=== PATIENT | female | born 1935 | race Hispanic/Latino ===

== ENCOUNTER 2021-12-09 21:32 | Observation (INO) | payer OTHER ==
[~2021-12-09] VITALS: Ht 165.1 cm; Wt 74.4 kg
[2021-12-09 22:15] LABS: BASOPHILS % (AUTO) 0.3 % (0.0-5.0); HEMATOCRIT 43.4 % (36-48); LYMPHOCYTES % (AUTO) 4.3 % (21.0-51.0); MEAN CORPUSCULAR HEMOGLOBIN 33.3 pg (27.0-33.0); MEAN CORPUSCULAR HGB CONC 33.4 g/dL (32.0-36.0); MEAN CORPUSCULAR VOLUME 99.5 fL (79-99); MONOCYTES % (AUTO) 4.1 % (3.0-13.0); PLATELET COUNT (AUTO) 122 K/uL (130-400); RED BLOOD CELL COUNT(AUTO) 4.36 MIL/uL (4.00-5.50); RED CELL DISTRIBUTION WIDTH 16.3 % (11.0-15.5); WHITE BLOOD COUNT (AUTO) 14.7 K/uL (4.8-10.8)
[2021-12-09 22:23] LABS: CREATININE 1.2 mg/dL (0.5-1.5); POTASSIUM 4.1 mmol/L (3.5-5.1)
[2021-12-09 22:28] LABS: ALBUMIN 3.6 g/dL (3.5-5.0); TOTAL PROTEIN, SERUM 8.3 g/dL (6.0-8.3)
[2021-12-09] MEDS ORDERED: 0.9%NACL 1000ML 1,000 ML IV ONE (23:00)
[2021-12-09 23:01] LABS: APPEARANCE,URINE TURBID (CLEAR); BILIRUBIN,URINE NEGATIVE (NEGATIVE); COLOR,URINE LIGHT-ORANGE (YELLOW); GLUCOSE, URINE (UA) NEGATIVE (NEGATIVE); KETONES,URINE NEGATIVE (NEGATIVE); LEUKOCYTE ESTERASE ,URINE 500 Leu/uL (NEGATIVE); NITRATE,URINE 2+ (NEGATIVE); OCCULT BLOOD,URINE LARGE (NEGATIVE); PH,URINE 5.5 (5.0-8.0); PROTEIN,URINE 70 mg/dL (NEGATIVE); UROBILINOGEN,URINE 0.2 mg/dL (0.2-1.0)
[2021-12-09 23:13] LABS: BACTERIA,URINE MANY /HPF (None Seen); MUCUS,URINE RARE LPF (None Seen); RBC,URINE TNTC /HPF (0-1); RENAL EPITHELIAL CELLS,URINE FEW /HPF (None Seen); SQUAMOUS EPITHELIAL CELL,UR RARE /HPF (0-2); WBC,URINE TNTC /HPF (0-1); YEAST,URINE BUDDING FEW /HPF (None Seen)
[2021-12-09] MEDS ORDERED: CEFTRIAXONE 1G VIAL IVP ONE (23:30)
[2021-12-10] MEDS ORDERED: FOLI1 PO (01:00)
[2021-12-10] MEDS ORDERED: CARB1TAB41 PO (01:00)
[2021-12-10] MEDS ORDERED: LEVO25CA4 PO (01:00)
[2021-12-10] MEDS ORDERED: MELA1TAB17 PO (01:00)
[2021-12-10] MEDS ORDERED: DONE10TA43 PO (01:00)
[2021-12-10] MEDS ORDERED: MIDO5TAB4 PO ×2 (01:00)
[2021-12-10] MEDS ORDERED: METF-444 PO (01:00)
[2021-12-10] MEDS: DEXTROSE 5 %-0.45 % NACL 1,000 ML IV SCH ×2 (01:03→09:00)
[2021-12-10] MEDS: LEVOTHYROXINE 25 MCG TABLET PO SCH (07:38)
[2021-12-10 08:35] LABS: HEMATOCRIT 36.3 % (36-48); MEAN CORPUSCULAR HEMOGLOBIN 33.9 pg (27.0-33.0); MEAN CORPUSCULAR HGB CONC 33.9 g/dL (32.0-36.0); PLATELET COUNT (AUTO) 100 K/uL (130-400); RED BLOOD CELL COUNT(AUTO) 3.63 MIL/uL (4.00-5.50); RED CELL DISTRIBUTION WIDTH 16.4 % (11.0-15.5)
[2021-12-10] MEDS: CARBIDOPA LEVO PO SCH ×2 (09:00→20:26)
[2021-12-10 09:03] LABS: ALBUMIN 2.8 g/dL (3.5-5.0); POTASSIUM 3.9 mmol/L (3.5-5.1); TOTAL PROTEIN, SERUM 6.7 g/dL (6.0-8.3)
[2021-12-10 09:30] VITALS: BP 104/48
[2021-12-10] MEDS: METFORMIN HCL 500 MG TABLET PO SCH (10:32)
[2021-12-10] MEDS: FOLIC ACID 1 MG TABLET PO SCH (10:32)
[2021-12-10] MEDS: MIDODRINE HCL 5 MG TABLET PO SCH ×3 (10:32→16:28)
[2021-12-10 11:19] LABS: BASOPHILS % (MANUAL) 1 % (0-2); LYMPHOCYTES % (MANUAL) 9 % (22-44); MAN.DIFF COMMENT-IMPRESSION MANUAL DIFFERENTIAL; MONOCYTES % (MANUAL) 9 % (2-9); PLATELET MORPHOLOGY COMMENT SLIGHTLY DECREASED; SEGMENTED NEUTROPHILS % 81 % (40-70)
[2021-12-10 12:00] VITALS: BP 109/52
[2021-12-10 16:00] VITALS: BP 109/50
[2021-12-10 19:00] VITALS: BP 116/47
[2021-12-10] MEDS ORDERED: DONEPEZIL HCL 5 MG TAB PO SCH (21:00)
[2021-12-10] MEDS ORDERED: **HM**MELATONIN 5MG PO SCH (21:00)
[2021-12-10] MEDS ORDERED: CEFTRIAXONE 1G VIAL IVP SCH (23:00)
[2021-12-10 23:56] VITALS: BP 117/61
[2021-12-11] MEDS: DEXTROSE 5 %-0.45 % NACL 1,000 ML IV SCH (03:07)
[2021-12-11 04:00] VITALS: BP 126/64
[2021-12-11 05:07] LABS: BASOPHILS % (AUTO) 0.4 % (0.0-5.0); EOSINOPHILS % (AUTO) 5.9 % (0.0-8.0); HEMATOCRIT 34.5 % (36-48); LYMPHOCYTES % (AUTO) 23.8 % (21.0-51.0); MEAN CORPUSCULAR HEMOGLOBIN 33.8 pg (27.0-33.0); MEAN CORPUSCULAR HGB CONC 33.3 g/dL (32.0-36.0); MEAN CORPUSCULAR VOLUME 101.5 fL (79-99); NEUTROPHILS % (AUTO) 57.8 % (40.0-77.0); PLATELET COUNT (AUTO) 99 K/uL (130-400); RED CELL DISTRIBUTION WIDTH 16.6 % (11.0-15.5); WHITE BLOOD COUNT (AUTO) 7.9 K/uL (4.8-10.8)
[2021-12-11 05:18] LABS: ALBUMIN 2.6 g/dL (3.5-5.0); CREATININE 0.9 mg/dL (0.5-1.5); POTASSIUM 3.6 mmol/L (3.5-5.1); TOTAL PROTEIN, SERUM 6.3 g/dL (6.0-8.3)
[2021-12-11] MEDS: LEVOTHYROXINE 25 MCG TABLET PO SCH (06:05)
[2021-12-11] MEDS: METFORMIN HCL 500 MG TABLET PO SCH (09:37)
[2021-12-11] MEDS: MIDODRINE HCL 5 MG TABLET PO SCH (09:37)
[2021-12-11] MEDS: FOLIC ACID 1 MG TABLET PO SCH (09:37)
[2021-12-11] MEDS: CARBIDOPA LEVO PO SCH (09:38)
[2021-12-11 10:24] VITALS: BP 124/62
[2022-01-03] MEDS ORDERED: MELA1TAB17 PO (09:30)
[2022-01-03] MEDS ORDERED: ASPI-1005 PO (09:30)
[2022-01-03] MEDS ORDERED: ALEN70TA85 PO (09:30)
[2022-01-03] MEDS ORDERED: CALC-911 PO (09:30)
== END 2021-12-11 10:50 | disposition home or self-care (01) ==
LOC: EDBD 21:32 → EDH 21:32 → EDHIP 12-10 00:35 → 3AH 12-10 09:30
PROVIDERS: ADMIT Internal Medicine; ATTEND Internal Medicine
DX: N39.0 Urinary tract infection, site not specified (principal); R31.0 Gross hematuria; G20 Parkinson's disease; F02.80 Dementia in other diseases classified elsewhere, unspecified severity, without behavioral disturbance, psychotic disturbance, mood disturbance, and anxiety; E11.51 Type 2 diabetes mellitus with diabetic peripheral angiopathy without gangrene; E78.5 Hyperlipidemia, unspecified; E78.00 Pure hypercholesterolemia, unspecified; E86.0 Dehydration; R47.01 Aphasia; Z90.12 Acquired absence of left breast and nipple; Z90.710 Acquired absence of both cervix and uterus; Z79.899 Other long term (current) drug therapy
CPT/HCPCS: 96374; 96361 ×3; 99284; 80053 ×3; 85025 ×3; 87040 ×2; 83605 ×2; 81001; 36415 ×3; 71045; 93005; 96376; 87077; 87088; 87186; 76770; J7030; J0696 ×2; G0378 ×34; J7042 ×3